=== PATIENT | male | born 1985 | race Caucasian/White ===

== ENCOUNTER → 2020-12-11 | Outpatient (CLI) | payer OTHER | LOC: MHCPAIN 14:55 | DX: M47.817 Spondylosis without myelopathy or radiculopathy, lumbosacral region (principal); M54.5 Low back pain; M53.3 Sacrococcygeal disorders, not elsewhere classified; G89.29 Other chronic pain | CPT/HCPCS: G0463 ==

== ENCOUNTER → 2020-12-19 | Outpatient (CLI) | payer OTHER | LOC: MHCPAIN 14:31 | DX: M47.817 Spondylosis without myelopathy or radiculopathy, lumbosacral region (principal); M54.16 Radiculopathy, lumbar region | CPT/HCPCS: J1100; Q9967 ==

== ENCOUNTER → 2020-12-31 | Outpatient (CLI) | payer OTHER | LOC: MHCPAIN 14:42 | DX: M47.817 Spondylosis without myelopathy or radiculopathy, lumbosacral region (principal); M54.16 Radiculopathy, lumbar region; M53.3 Sacrococcygeal disorders, not elsewhere classified; G89.29 Other chronic pain | CPT/HCPCS: G0463 ==

== ENCOUNTER → 2021-01-13 | Outpatient (CLI) | payer OTHER | LOC: MHCPAIN 15:23 | CPT/HCPCS: J1100; Q9967 ==

== ENCOUNTER 2024-07-10 09:21 | Emergency (ER) | payer OTHER ==
[~2024-07-10] VITALS: Ht 172.7 cm; Wt 90.9 kg
[~2024-07-10 09:21] MED LIST: EZFE 200200 MG PO; MAGNESIUM200 MG PO; VITAMIN B COMPL1 SGL PO; VITAMIN D31000 I1 PO
[2024-07-10 09:31] VITALS: BP 152/94; TEMP 98.3
[2024-07-10] MEDS ORDERED: PERCOCET 325 MG1 TA2 PO (10:47)
[2024-07-10 11:05] VITALS: PULSE 80
== END 2024-07-10 11:05 | disposition home or self-care (01) ==
LOC: COL.ER 09:21
DX: S43.401A Unspecified sprain of right shoulder joint, initial encounter (principal); W11.XXXA Fall on and from ladder, initial encounter